=== PATIENT | male | born 1955 | race African-American/Black ===

== ENCOUNTER 2016-11-29 16:34 | Emergency (ER) | payer MEDICARE, MEDICAID ==
[~2016-11-29] VITALS: Ht 177.8 cm; Wt 90.0 kg
[2016-11-29 16:48] VITALS: BP 134/75
== END 2016-11-30 06:46 | disposition left against medical advice (07) ==
LOC: ER 11-30 06:31
DX: Z53.21 Procedure and treatment not carried out due to patient leaving prior to being seen by health care provider (principal)

== ENCOUNTER 2021-12-12 13:00 | Emergency (ER) | payer MEDICARE, MEDICAID ==
[~2021-12-12] VITALS: Ht 180.3 cm; Wt 82.0 kg
[2021-12-12 13:01] VITALS: BP 128/62
[2021-12-12] MEDS ORDERED: TETANUS, DIPHTHERIA, PERTUSSIS VAC/PF 0.5ML (>10YR OLD) IM ONE (13:45)
[2021-12-12] MEDS ORDERED: LIDOCAINE HCL 1% 20ML VIAL (Pyxis) INJ INFIL ONE (13:45)
[2021-12-12] MEDS ORDERED: KETOROLAC 15MG/ML VIAL IM ONE (14:15)
[2021-12-12] MEDS ORDERED: CLIN-194 MT (15:31)
== END 2021-12-12 15:41 | disposition home or self-care (01) ==
LOC: ER 13:25
DX: S61.511A Laceration without foreign body of right wrist, initial encounter (principal); E78.00 Pure hypercholesterolemia, unspecified; I10 Essential (primary) hypertension; E11.9 Type 2 diabetes mellitus without complications; W01.110A Fall on same level from slipping, tripping and stumbling with subsequent striking against sharp glass, initial encounter; Y93.89 Activity, other specified; Y92.89 Other specified places as the place of occurrence of the external cause; Y99.8 Other external cause status
CPT/HCPCS: 12002; 73110; 90471; 90715; 96372; 99284; J1885; J3490